=== PATIENT | female | born 1995 | race Caucasian/White ===

== ENCOUNTER 2023-11-18 12:50 | Emergency (ER) | payer MEDICAID, OTHER ==
[~2023-11-18] VITALS: Ht 170.2 cm; Wt 92.9 kg
[2023-11-18] MEDS ORDERED: ondansetron 4mg rapidly disintigrating tab PO ONE (15:40)
[2023-11-18] MEDS ORDERED: acetaminophen 325mg tablet PO ONE (15:40)
[2023-11-18] MEDS ORDERED: ibuprofen 200mg tablet PO ONE (15:40)
[2023-11-18] MEDS ORDERED: ONDA4TAB12 PO (16:34)
[2023-11-18] MEDS ORDERED: IBUP-2417 PO (16:34)
[2023-11-18] MEDS ORDERED: ACET-75 PO (16:34)
[2023-11-18 17:07] VITALS: BP 122/75; PULSE 93; RESP 18; TEMP 100.6; O2SAT 93
== END 2023-11-18 18:59 | disposition home or self-care (01) ==
LOC: ER 12:51
DX: B34.9 Viral infection, unspecified (principal); Z20.822 Contact with and (suspected) exposure to COVID-19; R11.2 Nausea with vomiting, unspecified; Z79.899 Other long term (current) drug therapy
CPT/HCPCS: 36415; 87502; 87503; 87811; 99284